=== PATIENT | male | born 1950 | race Two or more races ===

== ENCOUNTER → 2016-04-18 | Outpatient (CLI) | payer MEDICARE, OTHER | LOC: OD 07:47 | PROVIDERS: ATTEND Family Medicine | DX: M25.512 Pain in left shoulder (principal) ==

== ENCOUNTER → 2016-04-25 | Outpatient (CLI) | payer MEDICARE, OTHER | LOC: RAD 10:14 | PROVIDERS: ATTEND Physician Assistant | DX: R94.4 Abnormal results of kidney function studies (principal) | CPT/HCPCS: 76770 ==

== ENCOUNTER → 2018-02-24 | Outpatient (CLI) | payer MEDICARE, OTHER ==
--- NOTE | 2018-02-24 10:17 | RADIOLOGY REPORT (SQ) ---
EXAM DESCRIPTION: HAND RIGHT 3 VIEWS COMPLETED DATE/TIME: 02/24/2018 9:57 am REASON FOR STUDY: FINGER INFECTION L08.9 LOCAL INFECTION OF THE SKIN AND SUBCUTANEOUS TISSUE, U COMPARISON: None. EXAM PARAMETERS: NUMBER OF VIEWS: Three views. TECHNIQUE: AP, lateral and oblique radiographic images acquired of the right hand. LIMITATIONS: None. FINDINGS: MINERALIZATION: Normal. BONES: No acute fracture or dislocation. No worrisome bone lesions. JOINTS: There is joint space narrowing in the proximal and distal interphalangeal joints. There are degenerative changes in the 1st carpal/metacarpal joint. Findings are consistent with osteoarthritis . SOFT TISSUES: There is soft tissue swelling involving the 4th digit. No underlying bony abnormality. OTHER: No other significant finding. IMPRESSION: 1. Osteoarthritic changes throughout the right hand. 2. Soft tissue swelling involving the 4th digit. No underlying bony abnormality or foreign body. TECHNICAL DOCUMENTATION: JOB ID: [id number] [employer]- All Rights Reserved Reading location - IP/workstation name: [email or web address]
== END ==
LOC: OD 09:47
PROVIDERS: ATTEND Family Medicine
DX: L08.9 Local infection of the skin and subcutaneous tissue, unspecified (principal); M19.041 Primary osteoarthritis, right hand

== ENCOUNTER → 2018-09-03 | Outpatient (CLI) | payer MEDICARE, OTHER ==
--- NOTE | 2018-09-03 10:37 | RADIOLOGY REPORT (SQ) ---
EXAM DESCRIPTION: U/S RETROPERITON (RENAL/AORTA) COMPLETED DATE/TIME: 09/03/2018 8:16 am REASON FOR STUDY: ABN KIDNEY FUNCTION STUDIES (R94.4) R94.4 ABNORMAL RESULTS OF KIDNEY FUNCTION GATITO DIES COMPARISON: To the 817 TECHNIQUE: Dynamic and static grayscale images acquired of the kidneys and bladder and recorded on P ACS. Additional selected color Doppler and spectral images recorded. LIMITATIONS: None. FINDINGS: RIGHT KIDNEY: Normal size, 10 cm. Normal echogenicity. No solid or suspicious masses. No h ydronephrosis. No calcifications. LEFT KIDNEY: Normal size, 9.7 cm. Normal echogenicity. No solid or suspicious masses. No hydronephro sis. No calcifications. BLADDER: Bladder is not filled and therefore not evaluated. OTHER FINDINGS: No other significant finding. IMPRESSION: Normal renal ultrasound. TECHNICAL DOCUMENTATION: JOB ID: [id number] [employer]- All Rights Reserved Reading location - IP/workstation name: [email or web address]
== END ==
LOC: RAD 07:42
PROVIDERS: ATTEND Family Medicine
DX: R94.4 Abnormal results of kidney function studies (principal)
CPT/HCPCS: 76770